=== PATIENT | male | born 1980 | race American Indian/Alaskan Native ===

== ENCOUNTER 2021-03-06 05:40 | Emergency (ER) | payer SELFPAY ==
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
[2021-03-06] MEDS ORDERED: IBUPROFEN 800 MG TAB PO ONE (09:17)
[2021-03-06 10:36] LABS: Hematocrit 43.7 % (35.5-45.6); Hemoglobin 15.3 gm/dl (11.8-15.2); Mean Corpuscular HGB Conc 35 % (32-34); Mean Corpuscular Volume 99 fl (84-94); Platelet Count 104 K/mm3 (140-440); Red Blood Count 4.41 M/mm3 (3.65-5.03); Red Cell Distribution Width 15.8 % (13.2-15.2)
[2021-03-06 11:00] LABS: Alanine Aminotransferase 71 units/L (7-56); Albumin 4.3 g/dL (3.9-5); Blood Urea Nitrogen 10 mg/dL (9-20); Calcium 9.5 mg/dL (8.4-10.2); Hemolysis Index 27
[2021-03-06 11:01] LABS: BUN/Creatinine Ratio 14
--- NOTE | 2021-03-06 14:45 | XRay Report ---
XR chest routine 2V INDICATION / CLINICAL INFORMATION: BACK PAIN AND HTN. COMPARISON: None available. FINDINGS: SUPPORT DEVICES: None. HEART /PULMONARY VASCULATURE: No significant abnormality. LUNGS / PLEURA: Low lung volumes. No focal airspace consolidation. No sizable pleural effusion. No pn eumothorax. ADDITIONAL FINDINGS: No significant additional findings. IMPRESSION: 1. No acute findings. Signer Name: Orlando Drake MD Signed: 03/06/2021 2:41 PM Workstation Name: [id number]
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
[2021-03-06 14:56] LABS: Total Cells Counted 100
[2021-03-06 14:59] LABS: Platelet Estimate Consistent w Auto; RBC Morphology Normal
[2021-03-06] MEDS ORDERED: methylPREDNISolone Sod Succinate 125 MG/2 ML INJ IM ONE (15:02)
[2021-03-06] MEDS ORDERED: KETOROLAC 30 MG/1 ML INJ IM ONE (15:02)
[2021-03-06] MEDS ORDERED: cloNIDine 0.2 MG TAB PO ONE (15:16)
[2021-03-06 19:06] VITALS: BP 174/112
--- NOTE | 2021-03-07 11:40 | Electrocardiograph Report ---
[facility] Test Date: 2021-03-06 Test Time: 09:14:47 Pat Name: FRANKLYN RADFORD Department: Room: Gender: M Administrative Clerk: MARY : 1980 Requested By: JUHI SANTOS Order Number: [id number] Reading MD: Emory Martinez Measurements Intervals [place]ore Rate: 94 P: 50 [place]: 144 QRS: 55 QRSD: 93 T: -27 QT: 353 QTc: 443 Interpretive Statements Sinus rhythm Left ventricular hypertrophy Nonspecific T abnormalities, inferior leads No previous ECG available for comparison Electronically Signed On 03-07-2021 11:40:25 EDT by Emory Martinez
== END 2021-03-06 19:07 | disposition home or self-care (01) ==
LOC: ED 05:40
DX: M54.5 Low back pain (principal); I10 Essential (primary) hypertension; Z79.899 Other long term (current) drug therapy
CPT/HCPCS: 36415; 71046; 80053; 84484; 85007; 85025; 93005; 96372; 99284; J1885; J2930; 80320; G0480

== ENCOUNTER 2021-07-03 23:09 | Emergency (ER) | payer OTHER ==
[2021-07-04 03:09] VITALS: BP 131/103
[2021-07-04] MEDS ORDERED: oxyCODONE /ACETAMINOPHEN 5-325MG TAB PO ONE (04:24)
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
--- NOTE | 2021-07-04 05:07 | XRay Report ---
Bilateral hips-3 total views INDICATION: hip pain. COMPARISON: None. IMPRESSION: No acute osseous abnormality. Soft tissues are normal. Normal alignment. No significa nt DJD. Signer Name: Jaydon Bradford MD Signed: 07/04/2021 5:03 AM Workstation Name: [id number]
== END 2021-07-04 07:00 | disposition home or self-care (01) ==
LOC: ED 23:09
DX: M54.5 Low back pain (principal); I10 Essential (primary) hypertension; F17.200 Nicotine dependence, unspecified, uncomplicated; Z79.899 Other long term (current) drug therapy; Z98.890 Other specified postprocedural states
CPT/HCPCS: 73521